=== PATIENT | male | born 1995 | race Caucasian/White ===

== ENCOUNTER 2017-07-27 18:18 | Emergency (ER) | payer OTHER ==
[2017-07-27 18:32] VITALS: BP 125/60; PULSE 72; RESP 20; TEMP 98.9; O2SAT 99
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
[2017-07-27] MEDS ORDERED: CYCLOBENZAPRINE HCL 10 MG TAB PO ONE (18:45)
[2017-07-27] MEDS ORDERED: KETOROLAC TROMETHAMINE 60 MG/2 ML (IM) VIAL IM ONE (18:45)
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
[2017-07-27] MEDS ORDERED: CYCL10TA PO (19:22)
[2017-07-27] MEDS ORDERED: NAPR500 PO (19:22)
== END 2017-07-27 19:51 | disposition home or self-care (01) ==
LOC: NEPD 18:18
DX: S16.1XXA Strain of muscle, fascia and tendon at neck level, initial encounter (principal); V49.40XA Driver injured in collision with unspecified motor vehicles in traffic accident, initial encounter; Y92.410 Unspecified street and highway as the place of occurrence of the external cause
CPT/HCPCS: 70450; 72125; 96372; 99285; J1885